=== PATIENT | male | born 1945 | race Caucasian/White ===

== ENCOUNTER → 2021-07-10 | Outpatient (CLI) | payer MEDICARE ==
--- NOTE | 2021-07-10 20:22 | CONS ---
CONSULTATION DATE OF SERVICE: 07/10/2021 This 75-year-old gentleman has been re-evaluated in [facility] for obstructive sleep apnea-hypopnea syndrome. The last time I saw this patient was on 02/27/2016 for follow-up visit for treatment of complex obstructive sleep apnea-hypopnea syndrome. At that time patient was on treatment with Auto Servo ventilator, and his breathing on Auto Servo ventilator was absolutely perfect; at that time apnea-hypopnea index was 0.5. My records indicate that previous treatment with CPAP and BiPAP was not effective, and that is why patient was switched to Auto Servo ventilator. I did not see the patient since that previous visit. He continues to use PAP therapy, but his Auto Servo ventilator was broken and in [place] he received a CPAP unit, which he continues to use at the present time. I tried to check his CPAP unit, but the knob on the CPAP unit does not work. The patient initiates treatment by starting to breathe through the machine and then the machine starts to work. His sleep schedule is from 10 p.m. to 8 or 9 a.m. Usually no significant problems with falling asleep. No TV in bedroom. He usually sleeps on the side position. He wakes up from sleep up to 3 times to urinate. No snoring with the machine, according to the patient. No history of sleep paralysis or hypnagogic hallucinations or cataplexy. The patient may take one nap around 3 p.m. for siesta; at present he lives in [place] most of the time. [place] Sleepiness Scale is 4. PAST MEDICAL HISTORY: Positive for hypertension, hyperlipidemia. PAST SURGICAL HISTORY: Right hip replacement, back surgery. MEDICATIONS: Lisinopril 20 mg once a day, Lipitor 20 mg once a day. SOCIAL HISTORY: Positive for smoking 3/4 to 1 pack per day since age 22. Alcohol consumption occasional. FAMILY HISTORY: Positive for epilepsy. REVIEW OF SYSTEMS: Awakenings from sleep with nocturia. No fevers. No double vision. No recent chest pain. No shortness of breath. No abdominal pain. No bleeding episodes. No blood in the urine. No seizure episodes. PHYSICAL EXAMINATION: GENERAL: Pleasant gentleman without distress. VITAL SIGNS: BP 156/91, HR 63, RR 15, height 5 feet 7-1/2 inches, weight 223.4 pounds, body mass index 34.6, temperature 97.6, oxygen saturation at room air 96%. HEENT: PERRLA, EOMI, evaluation of oropharynx showed tongue protrudes midline. Low position of soft palate. NECK: Supple, no JVD. Thyroid is not palpable. Neck is wide at 19-1/4 inches in circumference. LUNGS: Clear to percussion and to auscultation. Good air exchange. No wheezing or rhonchi. HEART: S1, S2 regular. No murmurs, gallops, or rubs. ABDOMEN: Obese. EXTREMITIES: No clubbing or cyanosis. MANAGER OF RADIOLOGY: Awake, alert, and oriented X3. Cranial nerves 2 to 7 intact. There is no fasciculation or atrophy. noted. No focal deficits observed. IMPRESSION: 1. Complex obstructive sleep apnea and central sleep apnea-hypopnea syndrome by results of sleep studies done in our institution more than 5 years ago. At present the patient is on treatment with CPAP. I cannot get a reading of apnea-hypopnea index from the machine because the knob on the CPAP unit does not work. 2. Hypertension. 3. Hyperlipidemia. 4. History of depression. 5. History of periodic limb movements in the past. No recent complaints. PLAN: 1. To get information about apnea-hypopnea index from patient's PAP unit. 2. If apnea-hypopnea index has increased, preferably switch patient back to Auto Servo ventilator. 3. Sleep hygiene with regular time bed for at least 8 hours. 4. No driving if feeling sleepiness. 5. Losing weight. Thank you very much for referring this patient for consultation. Sincerely, Thai Steve MD, PhD, FAASM Diplomat of [place] [employer] Sleep Medicine Board of [place] [employer] Automotive Heavy Mechanic of [facility] [place] MMODL / IJN: [id number] /
== END ==
LOC: SLEEP 11:02
PROVIDERS: ATTEND Internal Medicine
DX: G47.33 Obstructive sleep apnea (adult) (pediatric) (principal); G47.31 Primary central sleep apnea; I10 Essential (primary) hypertension; E78.5 Hyperlipidemia, unspecified; F32.A Depression, unspecified; F17.210 Nicotine dependence, cigarettes, uncomplicated; Z99.89 Dependence on other enabling machines and devices; Z79.899 Other long term (current) drug therapy

== ENCOUNTER → 2023-06-24 | Outpatient (CLI) | payer MEDICARE, OTHER ==
--- NOTE | 2023-06-24 17:26 | P.PN ---
Subjective DATE: 06/24/2023 FOLLOW UP VISIT. 77-year-old gentleman had been followed in sleep center for treatment of complex obstructive sleep apnea hypopnea syndrome. In the past patient was treated with out his service ventilator, but it was broken many years ago, then in [place] patient received CPAP unit and use it about one year. Patient did not use any treatment since 2020. Patient has problems with sleep. She has some sleepiness during the day, [place] Sleepiness Scale increased to 11. MEDICATIONS:1. Metformin 500 mg twice a day 2. Lisinopril 10 mg once a day 3. Jardiance 25 mg once a day 4. Atorvastatin 20 mg once a day 5. Lyrica 75 mg once a day During physical exam: GENERAL: A pleasant patient without any distress. VITAL SIGNS: BP 136/75, HR 91, RR 16 , weight 228, temperature 97.6, oxygen saturation at room air 94 % . HEENT: PERRLA, EOMI.low position of soft palate, Mall[place]ati 3 . NECK: Supple. No JVD. LUNGS: Clear to percussion and to auscultation. Good air exchange. No wheezing or rhonchi. HEART: S1, S2 regular. ABDOMEN: Soft and nontender. Slightly obese EXTREMITIES: No clubbing or cyanosis. GRAIN ELEVATOR SUPERINTENDENT: Awake, alert, and oriented x3. No focal deficit. Impressions: 1. History of complex obstructive and central sleep apnea hypopnea syndrome. Small oropharyngeal airspace, sleepiness during the day with [place] Sleepiness Scale 11. Patient was not on any treatment for about 3 years. 2. Hypertension. 3. Diabetes mellitus. 4. Hyperlipidemia. 5. History of periodic limb movements. 6. Status post right hip replacement. 7. Status post back surgery. 8. History of depression. Plan: 1. Polysomnography for evaluation of patient breathing during the sleep at the present time and also to check for possible periodic limb movements. 2. Following plan after reading sleep test. Patient will need Pap therapy, previously was treated ASV. 3. Sleep hygiene with regular time in bed for at least 8 hours 4. Precautions related to driving. No driving if feel any sleepiness. 5. Watching and loosing weight.. Thank you very much for allowing me to participate in the management of your patient. Thai Steve MD, PhD, FAASM. Diplomat of [place] [employer], Sleep Medicine Board by [place] [employer] Penal Officer of [facility] [place]
== END ==
LOC: 3 N SLEEP 16:22
PROVIDERS: ATTEND Internal Medicine
DX: G47.33 Obstructive sleep apnea (adult) (pediatric) (principal); E11.9 Type 2 diabetes mellitus without complications; I10 Essential (primary) hypertension; E78.5 Hyperlipidemia, unspecified; F17.200 Nicotine dependence, unspecified, uncomplicated; F32.A Depression, unspecified; G47.61 Periodic limb movement disorder; Z96.641 Presence of right artificial hip joint; Z98.890 Other specified postprocedural states; Z79.84 Long term (current) use of oral hypoglycemic drugs; Z79.899 Other long term (current) drug therapy
CPT/HCPCS: 99212

== ENCOUNTER 2023-07-06 19:46 | Outpatient (CLI) | payer MEDICARE, OTHER ==
--- NOTE | 2023-07-08 18:49 | P.PCN ---
Description of Procedure: POLYSOMNOGRAPHY REPORT PROCEDURE(S)/DATE(S): Polysomnography 07/06/2023 CLINICAL: Patient has been seen in the sleep center for evaluation of obstructive sleep apnea-hypopnea syndrome. Please see my consultation. Sleep study has been done for evaluation of patient breathing during the sleep. PROCEDURE: The standard montage for clinical polysomnography included the electroencephalogram, the electrooculogram, the mentalis surface electromyography and Lead II cardiography. The respiratory battery consisted of measurements of nasal/buccal air flow, pressure transducer measurements from nose, thoracic and/or abdominal effort and intercostal surface electromyography. Video monitoring has been done to check for any parasomnia events. Nocturnal oxyhemoglobin saturations were obtained by finger oximetry. Step-diamond titration with positive airway pressure was utilized to control the respiratory events, if necessary. RESULTS: During the diagnostic sleep study sleep efficiency was extremely short 61.3 %. Latency to sleep onset was borderline 28.5 min. Sleep architecture s howed stage NI was normal 5.7 %, Delta sleep was normal 5.3 %, REM sleep was short 8.1 %. Respiratory channel showed 0 obstructive apneas, 0 mixed apneas, 0 central apneas, 9 hypopneas with lowest oxygen level 87%. Total apnea hypopnea index was 2.2. Oxygen level was below 89% for 54 seconds. Heart rate was in the range between 64 and 76, average 72. EMG showed 89.2 periodic limb movements per hour with 0 micro-arousals per hour. IMPRESSIONS: 1. No significant respiratory abnormalities during the sleep have been documented. 2. Severe periodic limb movements have been documented, but without significant amount of micro-arousals. Please see other impressions from consultation PLAN: 1. I will see patient for follow-up visit to explain results of the test and recommendations. 2. Losing weight program. 3. Sleep hygiene with regular time in bed for at least 7-1/2 hours. 4. No driving if feeling sleepiness. 5. Please check iron profile including ferritin level. Low level of iron may increase the risk for periodic limb movements. Thank you very much for allowing me to participate in the management of your patient. Sincerely, Thai Steve MD, PhD, FAASM. Diplomat of [place] [employer], Sleep Medicine Board by [place] [employer] Chemical Production Technician of [facility] [place]
== END 2023-07-07 06:05 | disposition home or self-care (01) ==
LOC: 3 N SLEEP 19:46
PROVIDERS: ATTEND Internal Medicine
DX: G47.61 Periodic limb movement disorder (principal); F17.200 Nicotine dependence, unspecified, uncomplicated
CPT/HCPCS: 95810

== ENCOUNTER → 2023-08-27 | Outpatient (CLI) | payer MEDICARE ==
--- NOTE | 2023-08-27 16:03 | P.PN ---
Subjective DATE: 08/27/2023 FOLLOW UP VISIT. Patient returned to sleep center for follow-up visit to discuss results of sleep study and following plan. I discuss results of sleep studies with patient and family in details. No significant respiratory abnormalities have been documented during the sleep test. CVA periodic limb movements have been doc umented but without any related micro-arousals. At-home patient sleeps with pillow between legs, during the test patient slept without pillow between legs. Clinically patient and his does not feel significant movements of the legs at night.. . [place] sleepiness scale is 7, which is normal. MEDICATIONS:1. Metformin 500 mg twice a day 2. Lisinopril 10 mg once a day 3. Jardiance 25 mg once a day 4. Atorvastatin 20 mg once a day 5. Lyrica 75 mg once a day During physical exam: GENERAL: A pleasant patient without any distress. VITAL SIGNS: BP 98/57, HR 96, RR 16 , weight 228, temperature 97.8, oxygen saturation at room air 93% . HEENT: PERRLA, EOMI. NECK: Supple. No JVD. LUNGS: Clear to percussion and to auscultation. Good air exchange. No wheezing or rhonchi. HEART: S1, S2 regular. ABDOMEN: Soft and nontender. EXTREMITIES: No clubbing or cyanosis. SERVICE DISPATCHER: Awake, alert, and oriented x3. No focal deficit. Impressions: 1. No significant respiratory abnormalities have been documented during the sleep study 2. Loud snoring. 3. Periodic limb movements, but without related micro-arousals. 4. Hypertension. 5. Diabetes mellitus. 6. Status post right hip replacement. 7. Status post back surgery. 8. History of depression. Plan: 1. Patient should continue to sleep on the side position. 2. Sleep hygiene with regular time in bed for at least 8 hours. 3. Losing weight program 4. Precautions related to driving. No driving if feel any sleepiness. Patient is aware about civil and criminal liability for unsafe driving, promised to follow recommendations. 5. I discussed with patient and family possibility to start medications to prevent periodic limb movements, but we agreed that at the present time possibly it's not necessary. 7. Please check iron profile during 30 level low level of iron may increase risk for periodic limb movements. 8. Follow up in 1 year, if necessary. Thank you very much for allowing me to participate in the management of your patient. Thai Steve MD, PhD, FAASM. Diplomat of [place] [employer], Sleep Medicine Board by [employer] Type Proof Reproducer of [facility] [place] u
== END ==
LOC: 3 N SLEEP 13:58
PROVIDERS: ATTEND Internal Medicine
DX: G47.61 Periodic limb movement disorder (principal); E11.9 Type 2 diabetes mellitus without complications; I10 Essential (primary) hypertension; R06.83 Snoring; Z96.641 Presence of right artificial hip joint; F32.A Depression, unspecified; F17.200 Nicotine dependence, unspecified, uncomplicated; Z98.890 Other specified postprocedural states; Z99.89 Dependence on other enabling machines and devices; Z79.899 Other long term (current) drug therapy
CPT/HCPCS: 99212

== ENCOUNTER → 2023-12-17 | Outpatient (CLI) | payer MEDICARE ==
--- NOTE | 2023-12-18 07:44 | XR ---
EXAM TYPE: LUMBAR SPINE X RAY SERIES COMPARISON: None HISTORY: Pain TECHNIQUE: 4 views are submitted. FINDINGS: Extensive postsurgical changes involving the lower lumbar spine. Stimulator device and leads incident ally noted. There is severe degenerative disc disease with vacuum disc L3-L4. Grade 1 anterolisthesis . Posterior spondylosis. Surgical level demonstrates anatomic alignment. Postsurgical change involvin g the hip. There is borderline aneurysm of the aorta measuring 2.9 cm. Punctate calcification in the left upper quadrant likely related to tiny renal stone. IMPRESSION: 1. Severe degenerative disc disease with grade 1 anterolisthesis L3-L4. 2. Postsurgical changes lower lumbar spine 3. Borderline infrarenal abdominal aortic aneurysm measuring 2.9 cm. 4. Suspected nephrolithiasis.
== END | disposition home or self-care (01) ==
LOC: RADXRMAIN 16:09
PROVIDERS: ATTEND Family Medicine
DX: M43.16 Spondylolisthesis, lumbar region (principal); M51.36 Other intervertebral disc degeneration, lumbar region; I71.43 Infrarenal abdominal aortic aneurysm, without rupture; Z98.890 Other specified postprocedural states
CPT/HCPCS: 72100

== ENCOUNTER → 2024-08-20 | Outpatient (CLI) | payer MEDICARE ==
--- NOTE | 2024-08-21 07:40 | XR ---
EXAMINATION TYPE: XR knee complete LT DATE OF EXAM: 08/20/2024 CLINICAL HISTORY: Pain TECHNIQUE: Three views of the left knee are obtained. COMPARISON: None. FINDINGS: There is no acute fracture/dislocation evident in left knee. Genu varum positioning is see n. Severe narrowing with moderate spurring medial tibiofemoral compartment. Moderate narrowing with m ild spurring patellofemoral compartment. [id number] size suprapatellar joint effusion is felt present. IMPRESSION: As above. [facility], , 08/21/2024 7:37 AM
== END | disposition home or self-care (01) ==
LOC: RADXRMAIN 14:52
PROVIDERS: ATTEND Family Medicine
DX: M21.162 Varus deformity, not elsewhere classified, left knee (principal); M25.462 Effusion, left knee; M25.762 Osteophyte, left knee; M25.562 Pain in left knee